=== PATIENT | female | born 1945 | race Caucasian/White ===

== ENCOUNTER → 2016-12-01 | Day surgery (SDC) | payer MEDICARE, OTHER ==
[~2016-12-01] MED LIST: ANORO ELLIPTA1 EACH INH; CARAFATE1 GM PO; CYMBALTA 30MG C30 MG PO; DEMECLOCYCLINE300 MG PO; FLEXERIL10 MG PO; HABITROL7 MG TOP; LACTINEX1 EACH PO; LEVAQUIN750 MG PO; NORCO 5-325 TA1 EACH PO; NORVASC5 MG PO; PEPCID AC20 MG PO; PROTONIX 40MG T40 MG PO; TOPROL XL 50 MG50 MG PO; VENTOLIN HFA IN18 GM INH; XANAX0.25 MG PO
[2016-12-01 11:07] LABS: HGB 10.4 g/dl (12.5-16.0); MCH 31.6 pg (25.0-31.0); MCHC 35.9 g/dL (32.0-36.0); MCV 88.1 fL (78.0-100.0); MPV 9.7 fL (6.0-9.5); RBC 3.29 M/uL (4.20-5.40)
[2016-12-01 11:26] LABS: ALBUMIN 3.8 g/dL (3.4-4.8); BILIRUBIN - TOTAL 0.3 mg/dL (0.1-1.0); CREATININE 0.6 mg/dL (0.5-1.0); GLOBULIN (CALCULATION) 3.2 g/dL (2.2-4.2); POTASSIUM 3.6 mmol/L (3.5-5.1)
== END | disposition home or self-care (01) ==
LOC: FAS 09:54
PROVIDERS: Surgery
DX: K29.50 Unspecified chronic gastritis without bleeding (principal); K25.9 Gastric ulcer, unspecified as acute or chronic, without hemorrhage or perforation; K44.9 Diaphragmatic hernia without obstruction or gangrene; K21.9 Gastro-esophageal reflux disease without esophagitis; M19.90 Unspecified osteoarthritis, unspecified site; I87.2 Venous insufficiency (chronic) (peripheral); F17.210 Nicotine dependence, cigarettes, uncomplicated; Z88.0 Allergy status to penicillin; Z88.5 Allergy status to narcotic agent; Z88.8 Allergy status to other drugs, medicaments and biological substances; Z79.899 Other long term (current) drug therapy; Z88.2 Allergy status to sulfonamides; Z90.49 Acquired absence of other specified parts of digestive tract; Z90.710 Acquired absence of both cervix and uterus
CPT/HCPCS: 36415; 80053; 88305; 88312; J2704

== ENCOUNTER 2016-12-14 15:19 | Inpatient (IN) | payer MEDICARE, OTHER ==
[~2016-12-14] VITALS: Ht 160 cm; Wt 73.7 kg
[~2016-12-14 15:19] MED LIST changes: -CARAFATE1 GM PO; -CYMBALTA 30MG C30 MG PO; -DEMECLOCYCLINE300 MG PO; -LACTINEX1 EACH PO; -LEVAQUIN750 MG PO; -VENTOLIN HFA IN18 GM INH; -XANAX0.25 MG PO
[2016-12-15 04:52] LABS: CREATININE 0.5 mg/dL (0.5-1.0); POTASSIUM 3.8 mmol/L (3.5-5.1)
[2016-12-16 04:24] LABS: CREATININE 0.5 mg/dL (0.5-1.0); POTASSIUM 3.4 mmol/L (3.5-5.1)
[2016-12-17 05:19] LABS: HCT 26.8 % (37.0-47.0); HGB 9.5 g/dl (12.5-16.0); MCH 31.8 pg (25.0-31.0); MCHC 35.4 g/dL (32.0-36.0); MCV 89.6 fL (78.0-100.0); MPV 8.9 fL (6.0-9.5); RBC 2.99 M/uL (4.20-5.40); RDW 15.4 % (11.5-14.0); WBC 8.3 K/uL (4.0-10.5)
[2016-12-17 05:37] LABS: CREATININE 0.6 mg/dL (0.5-1.0); MAGNESIUM 1.57 mg/dL (1.40-2.10); POTASSIUM 3.4 mmol/L (3.5-5.1)
[2016-12-18 04:41] LABS: CREATININE 0.7 mg/dL (0.5-1.0); POTASSIUM 3.3 mmol/L (3.5-5.1)
[2016-12-19 07:18] LABS: CREATININE 0.6 mg/dL (0.5-1.0); POTASSIUM 3.7 mmol/L (3.5-5.1)
[2016-12-19] MEDS ORDERED: VENTOLIN HFA IN18 GM INH (12:44)
[2016-12-19] MEDS ORDERED: CYMBALTA 30MG C30 MG PO (12:44)
[2016-12-19] MEDS ORDERED: DEMECLOCYCLINE300 MG PO (12:44)
[2016-12-19] MEDS ORDERED: CARAFATE1 GM PO (12:44)
[2016-12-19] MEDS ORDERED: LEVAQUIN750 MG PO (12:45)
[2016-12-19] MEDS ORDERED: XANAX0.25 MG PO (12:45)
[2016-12-19] MEDS ORDERED: LACTINEX1 EACH PO (12:45)
== END 2016-12-19 12:50 | disposition home health service (06) | DRG 643 ==
LOC: FMS 15:19
PROVIDERS: Internal Medicine; Internal Medicine Nephrology; ADMIT Internal Medicine
DX: E22.2 Syndrome of inappropriate secretion of antidiuretic hormone (principal); J18.9 Pneumonia, unspecified organism; J96.10 Chronic respiratory failure, unspecified whether with hypoxia or hypercapnia; J44.9 Chronic obstructive pulmonary disease, unspecified; C34.90 Malignant neoplasm of unspecified part of unspecified bronchus or lung; C34.32 Malignant neoplasm of lower lobe, left bronchus or lung; I10 Essential (primary) hypertension; E87.6 Hypokalemia; R05 Cough; K21.9 Gastro-esophageal reflux disease without esophagitis; F41.9 Anxiety disorder, unspecified; Z85.048 Personal history of other malignant neoplasm of rectum, rectosigmoid junction, and anus; Z87.891 Personal history of nicotine dependence; Z88.1 Allergy status to other antibiotic agents; Z88.6 Allergy status to analgesic agent; Z88.0 Allergy status to penicillin; Z88.5 Allergy status to narcotic agent; Z88.2 Allergy status to sulfonamides
CPT/HCPCS: 36415; 36591; 71020; 71260; 80048; 80053; 82306; 82607; 82728; 82746; 83540; 83550; 83615; 83735; 83935; 84295; 84300; 84439; 84443; 84481; 85025; 85044; 86140; 87040; 87070; 87205; 94010; 94640; J1956; J2405; Q9967